=== PATIENT | female | born 1980 | race Caucasian/White ===

== ENCOUNTER 2017-08-07 00:17 | Emergency (ER) | payer OTHER ==
[~2017-08-07] VITALS: Ht 172.7 cm; Wt 54.4 kg
[2017-08-07 00:25] VITALS: BP 112/66
[2017-08-07] MEDS ORDERED: ALBUTEROL SULF8.5 GM INH ×2 (00:35→07:24)
[2017-08-07 00:45] VITALS: BP 112/66
--- NOTE | 2017-08-07 00:56 | Emergency Room Report ---
History of Present Illness General Chief Complaint: Medication Refill Source: Patient, EMS Present Illness HPI 36-year-old female, homeless, presenting with medication refill. States that she needs her albuterol inhaler on her Depakote. States that she ran out a week ago. Does not recall when her last seizure was. Denying any current headache neck pain shortness of breath Allergies: Coded Allergies: PENICILLINS (Verified Allergy, Unknown, 08/07/17) Patient History Past Medical History: see triage record Past Surgical History: none Pertinent Family History: none Last Menstrual Period: 1 month ago Now: No Reviewed Nursing Documentation: PMH: Agreed; PSxH: Agreed Nursing Documentation-PMH Past Medical History: No History, Except For Hx Asthma: Yes Hx Diabetes: Yes Hx Seizures: Yes Review of Systems All Other Systems: negative except mentioned in HPI Physical Exam Vital Signs Date Time Temp Pulse Resp B/P (MAP) Pulse Ox O2 Delivery O2 Flow Rate FiO2 08/07/17 00:19 98.2 90 16 112/66 100 Room Air 98.2 Sp02 EP Interpretation: reviewed, normal General Appearance: other - Disheveled young female, awake and alert, nontoxic , speaking complete sentences, not in acute distress, ambulating around the emergency room Head: normocephalic, atraumatic Eyes: bilateral eye normal inspection, bilateral eye PERRL, bilateral eye EOMI ENT: normal ENT inspection, normal pharynx, normal voice, moist mucus membranes Neck: normal inspection, full range of motion, supple Respiratory: normal inspection, lungs clear, normal breath sounds, no respiratory distress, no retraction, no wheezing, speaking full sentences, chest symmetrical Cardiovascular #1: normal inspection, regular rate, rhythm, no edema, normal capillary refill Cardiovascular #2: 2+ radial (R), 2+ radial (L) Gastrointestinal: normal inspection, non tender, soft, non-distended, no guarding Musculoskeletal: normal inspection, back normal, normal range of motion, non- tender Neurologic: normal inspection, alert, oriented x3, responsive, motor strength/ tone normal, sensory intact, normal gait, speech normal Psychiatric: normal inspection, judgement/insight normal, memory normal Skin: normal inspection, normal color, no rash, warm/dry, well hydrated, normal turgor Medical Decision Making Diagnostic Impression: Primary Impression: Medication refill ER Course 36-year-old female with medication refill DDX: Medication refill Plan: None ER course: Patient has remained stable during ED stay. Ambulating around the emergency room Disposition: Patient left the emergency room without her papers or prescription Last Vital Signs Date Time Temp Pulse Resp B/P (MAP) Pulse Ox O2 Delivery O2 Flow Rate FiO2 08/07/17 00:19 98.2 90 16 112/66 100 Room Air 98.2 Disposition: HOME, SELF-CARE Condition: Improved Scripts Albuterol Sulfate* (ALBUTEROL SULFATE MDI*) 8.5 Gm Hfa.aer.ad 2 PUFF INH Q3H, #1 INH 0 Refills Prov: Ronal Sandoval M.D. 08/07/17 Patient Instructions: Medicine Refill at the Emergency Department Additional Instructions: PLEASE SEE YOUR DOCTOR TO GET YOUR DEPAKOTE REFILL Ronal Sandoval M.D. Aug 07, 2017 00:56
[2017-08-07] MEDS ORDERED: DEPAKOTE250 MG PO (07:24)
== END 2017-08-07 00:45 | disposition home or self-care (01) ==
LOC: EDBD 00:17 → EMR 00:45
DX: Z76.0 Encounter for issue of repeat prescription (principal); J45.909 Unspecified asthma, uncomplicated; E11.9 Type 2 diabetes mellitus without complications; Z86.69 Personal history of other diseases of the nervous system and sense organs; Z88.0 Allergy status to penicillin
CPT/HCPCS: 99284

== ENCOUNTER 2017-08-07 07:04 | Emergency (ER) | payer OTHER ==
[~2017-08-07] VITALS: Ht 172.7 cm; Wt 54.4 kg
[~2017-08-07 07:04] MED LIST: ALBUTEROL SULF8.5 GM INH
[2017-08-07 07:19] VITALS: BP 116/79
[2017-08-07] MEDS ORDERED: DEPAKOTE250 MG PO (07:24)
[2017-08-07] MEDS ORDERED: ALBUTEROL SULF8.5 GM INH (07:24)
[2017-08-07 07:35] VITALS: BP 116/79
--- NOTE | 2017-08-07 08:26 | Emergency Room Report ---
History of Present Illness General Chief Complaint: Medication Refill Source: Patient Present Illness HPI 36-year-old female presents ED for medication refill. States she has history of asthma and seizures. Ran out of her albuterol and Depakote. Hasn't taken her Depakote in one week. Has not had a seizure since. States she feels okay at this time. No other aggravating or relieving factors. Denies any other associated symptoms Allergies: Coded Allergies: PENICILLINS (Verified Allergy, Unknown, 08/07/17) Patient History Past Medical History: asthma Past Surgical History: none Pertinent Family History: none Social History: Denies: smoking, alcohol use, drug use Last Menstrual Period: 1 1/2 months ago Now: No Immunizations: UTD Reviewed Nursing Documentation: PMH: Agreed; PSxH: Agreed Nursing Documentation-PMH Past Medical History: No History, Except For Hx Asthma: Yes Hx Seizures: Yes Review of Systems All Other Systems: negative except mentioned in HPI Physical Exam Vital Signs Date Time Temp Pulse Resp B/P (MAP) Pulse Ox O2 Delivery O2 Flow Rate FiO2 08/07/17 07:09 97.6 99 18 116/79 98 Room Air 97.5 Sp02 EP Interpretation: reviewed, normal General Appearance: no apparent distress, alert, GCS 15, non-toxic Head: normocephalic, atraumatic Eyes: bilateral eye normal inspection, bilateral eye PERRL ENT: hearing grossly normal, normal pharynx, no angioedema, normal voice Neck: full range of motion, supple/symm/no masses Respiratory: chest non-tender, lungs clear, normal breath sounds, speaking full sentences Cardiovascular #1: regular rate, rhythm, no edema Cardiovascular #2: 2+ carotid (R), 2+ carotid (L), 2+ radial (R), 2+ radial (L) , 2+ dorsalis pedis (R), 2+ dorsalis pedis (L) Gastrointestinal: normal bowel sounds, non tender, soft, non-distended, no guarding, no rebound Rectal: deferred Genitourinary: normal inspection, no CVA tenderness Musculoskeletal: back normal, gait/station normal, normal range of motion, non- tender Neurologic: alert, oriented x3, responsive, motor strength/tone normal, sensory intact, speech normal Psychiatric: judgement/insight normal, memory normal, mood/affect normal, no suicidal/homicidal ideation Reflexes: 3+ bicep (R), 3+ bicep (L), 3+ tricep (R), 3+ tricep (L), 3+ knee (R) , 3+ knee (L) Skin: normal color, no rash, warm/dry, well hydrated Lymphatic: no adenopathy Medical Decision Making Diagnostic Impression: Primary Impression: Medication refill ER Course 36-year-old female presents to ED refill of her medication. takes depakote for seizures, albuterol for asthma hospital course: After initial history and physical, I agreed to provide her refill of her Depakote and albuterol I ordered her dose of Depakote here Diagnosis-encounter for medication refill Stable and discharged to home with prescription for depakote, albuterol. Followup with PMD. Return to ED if symptoms recur or worsen Last Vital Signs Date Time Temp Pulse Resp B/P (MAP) Pulse Ox O2 Delivery O2 Flow Rate FiO2 08/07/17 07:35 97.5 78 18 116/79 98 Room Air 97.5 Status: improved Disposition: HOME, SELF-CARE Condition: Stable Scripts Albuterol Sulfate* (ALBUTEROL SULFATE MDI*) 8.5 Gm Hfa.aer.ad 2 PUFF INH Q4H, #1 INH 0 Refills Prov: TITO SANTOS M.D. 08/07/17 Divalproex Sodium* (DEPAKOTE*) 250 Mg Tablet. 250 MG PO DAILY, #30 TAB Prov: TITO SANTOS M.D. 08/07/17 Patient Instructions: Medicine Refill at the Emergency Department TITO SANTOS M.D. Aug 07, 2017 08:26
== END 2017-08-07 07:51 | disposition home or self-care (01) ==
LOC: EMR 07:20
DX: Z76.0 Encounter for issue of repeat prescription (principal); J45.909 Unspecified asthma, uncomplicated; G40.909 Epilepsy, unspecified, not intractable, without status epilepticus
CPT/HCPCS: 99284